=== PATIENT | male | born 1995 | race Two or more races ===

== ENCOUNTER 2020-12-02 11:06 | Emergency (ER) | payer SELFPAY ==
[~2020-12-02] VITALS: Ht 170.2 cm; Wt 95.0 kg
[2020-12-02 11:18] VITALS: BP 161/80
[2020-12-02] MEDS ORDERED: DIPH,PERTUSS(ACELL),TET VAC/PF 0.5 ML SYRINGE. VAX IM ONE (11:30)
[2020-12-02] MEDS ORDERED: LIDOCAINE 1% Multi-Dose 20 ML VIAL. INJ ONE (11:30)
--- NOTE | 2020-12-02 11:39 | RAD ---
EXAM: Left hand, 3 views. HISTORY: Laceration. COMPARISON: None. FINDINGS: 3 views of the left hand are obtained. There is a soft tissue defect with overlying bandage material involving the thumb, consistent with a reported laceration. No fracture or foreign body is seen. IMPRESSION: Soft tissue laceration involving the thumb. Electronically signed by: Nicole Otoole MD (12/02/2020 11:37 AM) [id number]
--- NOTE | 2020-12-02 12:00 | PHYS DOC ---
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 There is approximately a 2 inch laceration. Patient does need a tetanus shot. He rates his pain at a 5 out of 10 at this time. Review of Systems: Review of Systems: Constitutional: Denies fever or chills. [] Eyes: Denies change in visual acuity. [] HENT: Denies nasal congestion or sore throat. [] Respiratory: Denies cough or shortness of breath. [] Cardiovascular: Denies chest pain or edema. [] GI: Denies abdominal pain, nausea, vomiting, bloody stools or diarrhea. [] : Denies dysuria. [] Musculoskeletal: Denies back pain or + left thumb joint pain. [] Integument: Denies rash. + Left thumb laceration [] Neurologic: Denies headache, focal weakness or sensory changes. [] Endocrine: Denies polyuria or polydipsia. [] Lymphatic: Denies swollen glands. [] Psychiatric: Denies depression or anxiety. [] Heart Score: C/O Chest Pain: No Current Medications: Current Medications Medications (Trade) Dose Ordered Sig/Jatinder Start Time Stop Time Status Last Admin Dose Admin Diphtheria/ Tetanus/Acell Pertussis (ADACEL TDap SYRINGE) 0.5 ml ONCE ONCE 12/02/20 11:30 12/02/20 11:32 DC 12/02/20 11:38 0.5 ML Lidocaine HCl (Lidocaine 1% 20ml Vial) 20 ml 1X ONCE 12/02/20 11:30 12/02/20 11:32 DC Allergies: Allergies: Allergies Coded Allergies Type Severity Reaction Last Updated Verified No Known Drug Allergies 12/02/20 No Physical Exam: PE: Constitutional: Well developed, well nourished, no acute distress, non-toxic appearance. [] HENT: Normocephalic, atraumatic, bilateral external ears normal, oropharynx moist, no oral exudates, nose normal. [] Eyes: PERRLA, EOMI, conjunctiva normal, no discharge. [] Neck: Normal range of motion, no tenderness, supple, no stridor. [] Cardiovascular:Heart rate regular rhythm, no murmur [] Lungs & Thorax: Bilateral breath sounds clear to auscultation [] Abdomen: Bowel sounds normal, soft, no tenderness, no masses, no pulsatile masses. [] Skin: Warm, dry, no erythema, no rash. Left thumb laceration [] Back: No tenderness, no CVA tenderness. [] Extremities: Left dorsal thumb tenderness, no cyanosis, no clubbing, ROM intact, 1+ edema. [] Neurologic: Alert and oriented X 3, normal motor function, normal sensory function, no focal deficits noted. [] Psychologic: Affect normal, judgement normal, mood normal. [] Current Patient Data: Vital Signs: Vital Signs Date Time Temp Pulse Resp B/P (MAP) Pulse Ox O2 Delivery O2 Flow Rate FiO2 12/02/20 11:18 98.1 71 16 161/80 (107) 99 Room Air 98.1 EKG: EKG: [] Radiology/Procedures: Radiology/Procedures: [] Impression: [facility] [address] [place], [place] [id number] IMAGING REPORT Signed PATIENT: ADI DOBBS ACCOUNT: [id number] : 1995 LOCATION: ER AGE: 25 SEX: M EXAM STATUS: PRE ER ORD. PHYSICIAN: DAVIN CHRISTIAN APRN REASON: laceration back of left thumb PROCEDURE: HAND LEFT 3V EXAM: Left hand, 3 views. HISTORY: Laceration. COMPARISON: None. FINDINGS: 3 views of the left hand are obtained. There is a soft tissue defect with overlying bandage material involving the thumb, consistent with a reported laceration. No fracture or foreign body is seen. IMPRESSION: Soft tissue laceration involving the thumb. Electronically signed by: Nicole Leigh MD (12/02/2020 11:37 AM) [id number] DICTATED and SIGNED BY: NICOLE LIEGH MD DATE: 12/02/20 [id number] Course & Med Decision Making: Course & Med Decision Making Pertinent Labs and Imaging studies reviewed. (See chart for details) See HPI. Alert and oriented x4. Ambulatory steady gait. Speaks in full clear sentences. Full range of motion of all joints of the thumb. No joint laxity. No nailbed injury. Cap refill less than 2 seconds. Radial pulse strong and present. Bleeding is controlled with pressure. Laceration repair Location: Left dorsal thumb, 2 inches Local anesthesia: 1% lidocaine digital block Interrupted sutures/Internal sutures: 7 sutures using 5-0 Nerve/ligament/muscle damage: None Cleaning and irrigation: Saline chlorhexidine The appropriate timeout was taken. The area was prepped and draped in the usual sterile fashion. The wound was copiously irrigated with normal saline and chlorhexidine. Patient tolerated well without complication. Dressing was applied to the area follow-up education is given to observe for signs and symptoms of infection, bleeding and to follow-up promptly if these occur. Patient can return in 48 hours for a wound recheck. Sutures to be removed in 7 to 10 days. Dragon Disclaimer: Dragon Disclaimer: This electronic medical record was generated, in whole or in part, using a voice recognition dictation system. Departure Departure Impression: Primary Impression: Laceration Disposition: 01 HOME / SELF CARE / HOMELESS Condition: STABLE Referrals: NO PCP (PCP) Patient Instructions: Laceration Care, Adult Additional Instructions: Follow-up with primary care provider if needed. Keep clean and covered. Watch for signs of infection such as redness, drainage or increased swelling and pain. Use ice and ibuprofen for pain. The stitches need to come out in 10 days and you can either come back here to get them removed or go to your doctor or an urgent care. DAVIN CHRISTIAN APRN Dec 02, 2020 12:00
== END 2020-12-02 13:05 | disposition home or self-care (01) ==
LOC: ER 11:06
DX: S61.012A Laceration without foreign body of left thumb without damage to nail, initial encounter (principal); Z87.891 Personal history of nicotine dependence; Y28.8XXA Contact with other sharp object, undetermined intent, initial encounter; Y93.89 Activity, other specified; Y92.89 Other specified places as the place of occurrence of the external cause; Y99.8 Other external cause status
CPT/HCPCS: 12002; 73130; 90471; 90715; 99283-25